=== PATIENT | male | born 1985 | race Caucasian/White ===

== ENCOUNTER 2022-12-23 12:36 | Emergency (ER) | payer OTHER ==
[~2022-12-23] VITALS: Ht 167.6 cm; Wt 68.0 kg
[2022-12-23 12:38] VITALS: BP 134/80
[2022-12-23] MEDS ORDERED: CEFTRIAXONE 1G VIAL IVP ONE (13:00)
[2022-12-23] MEDS ORDERED: 0.9%NACL 1000ML 1,000 ML IV ONE (13:00)
[2022-12-23] MEDS ORDERED: ACETAMINOPHEN 500 MG TABLET PO ONE (13:00)
[2022-12-23 13:41] LABS: APPEARANCE,URINE CLEAR (CLEAR); BILIRUBIN,URINE NEGATIVE (NEGATIVE); COLOR,URINE COLORLESS (YELLOW); GLUCOSE, URINE (UA) NEGATIVE (NEGATIVE); KETONES,URINE NEGATIVE (NEGATIVE); LEUKOCYTE ESTERASE ,URINE NEGATIVE Leu/uL (NEGATIVE); NITRATE,URINE NEGATIVE (NEGATIVE); OCCULT BLOOD,URINE NEGATIVE (NEGATIVE); PH,URINE 6.5 (5.0-8.0); PROTEIN,URINE NEGATIVE (NEGATIVE); UROBILINOGEN,URINE 0.2 mg/dL (0.2-1.0)
[2022-12-23 14:01] LABS: AMPHET/METH SCREEN,URINE POSITIVE (NEGATIVE); BARBITURATE SCREEN, URINE NEGATIVE (NEGATIVE); BENZODIAZEPINES SCREEN,URINE POSITIVE (NEGATIVE); CANNABINOID SCREEN,URINE NEGATIVE (NEGATIVE); COCAINE SCREEN,URINE POSITIVE (NEGATIVE); OPIATE SCREEN,URINE NEGATIVE (NEGATIVE); PHENCYCLIDINE SCREEN,URINE NEGATIVE (NEGATIVE)
[2022-12-23 14:23] LABS: BASOPHILS % (AUTO) 0.3 % (0.0-5.0); HEMATOCRIT 38.6 % (42-54); LYMPHOCYTES % (AUTO) 20.4 % (21.0-51.0); MEAN CORPUSCULAR HGB CONC 33.7 g/dL (32.0-36.0); MEAN CORPUSCULAR VOLUME 88.9 fL (79-99); MONOCYTES % (AUTO) 6.7 % (3.0-13.0); NEUTROPHILS % (AUTO) 71.1 % (40.0-77.0); PLATELET COUNT (AUTO) 207 K/uL (130-400); RED BLOOD CELL COUNT(AUTO) 4.34 MIL/uL (4.50-6.20); RED CELL DISTRIBUTION WIDTH 11.9 % (11.0-15.5); WHITE BLOOD COUNT (AUTO) 6.2 K/uL (4.8-10.8)
[2022-12-23 14:35] LABS: CREATININE 0.9 mg/dL (0.5-1.5); POTASSIUM 3.7 mmol/L (3.5-5.1)
[2022-12-23 14:40] LABS: ALBUMIN 3.7 g/dL (3.5-5.0); TOTAL PROTEIN, SERUM 6.9 g/dL (6.0-8.3)
[2022-12-23] MEDS ORDERED: SULF1TAB42 PO (14:49)
== END 2022-12-23 15:00 | disposition home or self-care (01) ==
LOC: EDH 12:36
DX: L03.116 Cellulitis of left lower limb (principal); L03.115 Cellulitis of right lower limb; E86.0 Dehydration; F19.10 Other psychoactive substance abuse, uncomplicated; I10 Essential (primary) hypertension; F32.A Depression, unspecified
CPT/HCPCS: 99285; 93970; 96374; 96361; 84484; 80053; 83880; 80305; 85025; 83605; 36415; 93005; 81003; J7030; J0696